=== PATIENT | female | born 1990 | race American Indian/Alaskan Native ===

== ENCOUNTER 2016-10-23 08:25 | Outpatient (CLI) | payer MEDICAID ==
[2016-10-23] MEDS ORDERED: LACTATED RINGERS 500 ML IV ONE (08:38)
[2016-10-23 08:50] VITALS: BP 136/83
[2016-10-23 08:56] LABS: Bacteria,Urine 1+ /HPF (Negative); Bilirubin,Urine NEG (Negative); Blood,Urine MOD (Negative); Ketones,Urine NEG (Negative); Leukocyte Esterase,Urine NEG (Negative); Mucus,Urine FEW /HPF; Nitrite,Urine NEG (Negative); Protein,Urine <15 mg/dL mg/dL (Negative); Urobilinogen,Urine < 2.0 mg/dL (<2.0)
== END 2016-10-23 11:10 | disposition home or self-care (01) ==
LOC: TRG 08:25
PROVIDERS: ATTEND Obstetrics & Gynecology
DX: Z34.93 Encounter for supervision of normal pregnancy, unspecified, third trimester (principal); Z3A.33 33 weeks gestation of pregnancy
CPT/HCPCS: 81001; 96360; J7120

== ENCOUNTER 2016-11-13 18:27 | Outpatient (CLI) | payer MEDICAID ==
[2016-11-13 19:08] LABS: Hematocrit 33.7 % (30.3-42.9); Hemoglobin 11.7 gm/dl (10.1-14.3); Mean Corpuscular HGB Conc 35 % (30-34); Mean Corpuscular Hemoglobin 29 pg (28-32); Mean Corpuscular Volume 84 fl (79-97); Platelet Count 242 K/mm3 (140-440); Red Blood Count 4.03 M/mm3 (3.65-5.03); Red Cell Distribution Width 13.8 % (13.2-15.2); White Blood Count 7.4 K/mm3 (4.5-11.0)
[2016-11-13 19:13] LABS: Bilirubin,Urine NEG (Negative); Blood,Urine SM (Negative); Ketones,Urine 20 mg/dL (Negative); Leukocyte Esterase,Urine SM (Negative); Mucus,Urine 2+ /HPF; Nitrite,Urine NEG (Negative)
[2016-11-13] MEDS ORDERED: LACTATED RINGERS 1,000 ML IV ONE (19:22)
[2016-11-13] MEDS ORDERED: TYLENOL PO ONE (19:23)
[2016-11-13 19:28] LABS: Alanine Aminotransferase 8 units/L (7-56); Uric Acid 2.8 mg/dL (3.5-7.6)
[2016-11-13 20:27] VITALS: BP 129/79
== END 2016-11-13 20:42 | disposition home or self-care (01) ==
LOC: TRG 18:27
PROVIDERS: ATTEND Obstetrics & Gynecology
DX: O47.03 False labor before 37 completed weeks of gestation, third trimester (principal); Z3A.36 36 weeks gestation of pregnancy
CPT/HCPCS: 36415; 59025; 81001; 82565; 83615; 84450; 84460; 84550; 85027; 96360; J7120

== ENCOUNTER 2016-11-21 18:19 | Outpatient (CLI) | payer MEDICAID ==
[2016-11-21 21:13] VITALS: BP 139/88
== END 2016-11-21 21:41 | disposition home or self-care (01) ==
LOC: TRG 18:19
PROVIDERS: ATTEND Obstetrics & Gynecology
DX: O47.1 False labor at or after 37 completed weeks of gestation (principal); Z3A.37 37 weeks gestation of pregnancy

== ENCOUNTER 2016-11-30 08:43 | Inpatient (IN) | payer MEDICAID ==
[2016-11-30] MEDS ORDERED: BRETHINE IVP PRN (09:11)
[2016-11-30] MEDS ORDERED: MINERAL OIL PO PRN (09:11)
[2016-11-30] MEDS ORDERED: ePHEDrine SULFATE IV PRN ×2 (09:11→12:29)
[2016-11-30] MEDS ORDERED: STADOL IV PRN (09:11)
[2016-11-30] MEDS ORDERED: BRETHINE SUB-Q PRN (09:11)
[2016-11-30] MEDS ORDERED: SUBLIMAZE IV PRN (09:11)
[2016-11-30] MEDS ORDERED: XYLOCAINE 2% INFILTRATI ONE (10:00)
[2016-11-30] MEDS ORDERED: PITOCin/NS 30 UNIT/500ML 30 UNITS/500 ML BAG IV SCH ×2 (10:00)
[2016-11-30 10:04] LABS: Hematocrit 35.5 % (30.3-42.9); Hemoglobin 12.2 gm/dl (10.1-14.3); Mean Corpuscular HGB Conc 34 % (30-34); Mean Corpuscular Hemoglobin 29 pg (28-32); Mean Corpuscular Volume 84 fl (79-97); Platelet Count 225 K/mm3 (140-440); Red Blood Count 4.22 M/mm3 (3.65-5.03); Red Cell Distribution Width 14.5 % (13.2-15.2); White Blood Count 6.8 K/mm3 (4.5-11.0)
[2016-11-30] MEDS: LACTATED RINGERS 1,000 ML IV SCH ×2 (11:03→16:51)
[2016-11-30] MEDS ORDERED: fentaNYL-BUPIV 2 MCG/ML-0.125% 200 MCG/100 ML BAG EPIDURAL ONE (11:48)
[2016-11-30] MEDS ORDERED: NARCAN 2 MG/2 ML IV PRN (12:29)
--- NOTE | 2016-11-30 12:29 | Anesthesia Consultation ---
Anesthesia Consult and Med Hx Date of service: 11/30/16 - Airway Anesthetic Teeth Evaluation: Good ROM Head & Neck: Adequate Mental/Hyoid Distance: Adequate Mallampati Class: Class II Intubation Access Assessment: Probably Good - Pulmonary Exam CTA: Yes - Cardiac Exam Cardiac Exam: RRR - Pre-Operative Health Status ASA Pre-Surgery Classification: ASA3 Proposed Anesthetic Plan: Epidural, Spinal - Pulmonary Hx Asthma: No COPD: No Hx Pneumonia: No - Cardiovascular System Hx Hypertension: No - Central Nervous System Hx Seizures: No Hx Psychiatric Problems: No - Endocrine Hx Renal Disease: No Hx End Stage Renal Disease: No Hx Hypothyroidism: No Hx Hyperthyroidism: No - Hematic Hx Anemia: No Hx Sickle Cell Disease: No - Other Systems Hx Alcohol Use: No Hx Obesity: Yes (morbid, BMI> 40) - Additional Comments Anesthesia Medical History Comments: +IUP
[2016-11-30] MEDS ORDERED: fentaNYL-BUPIV 2 MCG/ML-0.125% 200 MCG/100 ML BAG EPIDURAL SCH (13:00)
[2016-11-30] MEDS: PITOCin/NS 20 UNIT/1000ML DRIP 20 UNITS/1,000 ML BAG IV SCH ×2 (19:00→20:25)
--- NOTE | 2016-11-30 19:28 | History and Physical Report ---
History of Present Illness Date of examination: 11/30/16 Date of admission: 11/30/16 10:14 Chief complaint: My water broke History of present illness: Patient is a 25 year old who presents with rupture of membranes and contractions. She has had an uncomplicated course. GBS negative Past History Past Medical History: no pertinent history Past Surgical History: no surgical history Family/Genetic History: none Social history: single - Obstetrical History Expected Date of Delivery: 12/03/16 Actual Gestation: 39 Week(s) 4 Day(s) : 3 Number of Living Children: 2 Medications and Allergies Allergies Allergy/AdvReac Type Severity Reaction Status Date / Time No Known Allergies Allergy Verified 10/23/16 08:38 Active Meds: Active Medications Butorphanol Tartrate (Stadol) 2 mg IV Q2H PRN PRN Reason: Pain , Severe (7-10) Ephedrine Sulfate (Ephedrine Sulfate) 10 mg IV Q2M PRN PRN Reason: Hypotension Stop: 11/30/16 23:59 Fentanyl (Sublimaze) 100 mcg IV Q2H PRN PRN Reason: Labor Pain Lactated Ringer's (Lactated Ringers) 1,000 mls @ 125 mls/hr IV DIRECT CAROLIN Last Admin: 11/30/16 16:51 Dose: 125 mls/hr Oxytocin/Sodium Chloride (Pitocin/Ns 20 Unit/1000ml Drip) 20 units in 1,000 mls @ 125 mls/hr IV DIRECT CAROLIN Oxytocin/Sodium Chloride (Pitocin/Ns 30 Unit/500ml) 30 units in 500 mls @ 1 mls /hr IV TITR CAROLIN; 1 MILLIUNITS/MIN PRN Reason: Protocol Last Admin: 11/30/16 16:30 Dose: 4 milliunits/min, 4 mls/hr Oxytocin/Sodium Chloride (Pitocin/Ns 30 Unit/500ml) 30 units in 500 mls @ 4 mls /hr IV TITR CAROLIN PRN Reason: Protocol Fentanyl/Bupivacaine/Sodium Chlor (Fentanyl-Bupiv 2 Mcg/Ml-0.125%) 200 mcg in 100 mls @ 12 mls/hr EPIDURAL TITR CAROLIN PRN Reason: Protocol Last Admin: 11/30/16 12:58 Dose: 12 mls/hr Mineral Oil (Mineral Oil) 30 ml PO QHS PRN PRN Reason: Constipation Terbutaline Sulfate (Brethine) 0.25 mg SUB-Q ONCE PRN PRN Reason: Hyperstimulation/Hypertonicity Stop: 11/30/16 23:59 Terbutaline Sulfate (Brethine) 0.25 mg IVP ONCE PRN PRN Reason: Hyperstimulation/Hypertonicity Stop: 11/30/16 23:59 Review of Systems All systems: negative Breasts: deferred Genitourinary: leakage of fluid, contractions Rectal Exam: deferred - Vital Signs Vital signs: Vital Signs Pulse Pulse Ox 101 H 98 11/30/16 08:52 11/30/16 08:52 Temp Pulse Resp BP Pulse Ox 98 F 115 H 16 138/66 100 11/30/16 15:57 11/30/16 19:18 11/30/16 15:57 11/30/16 19:09 11/30/16 19:18 - Physical Exam Breasts: Positive: deferred Cardiovascular: Regular rate, Normal S1, Normal S2 Lungs: Positive: Clear to auscultation, Normal air movement Abdomen: Positive: normal appearance, soft, normal bowel sounds Genitourinary (Female): Positive: normal external genitalia, normal perenium Vulva: both: normal Vagina: Positive: normal moisture Uterus: Positive: normal size, normal contour Extremities: Positive: normal - Obstetrical Cervical Dilatation: 3 Cervical Effacement Percentage: 70 station: -4 Uterine Contraction Pattern: Irregular Uterine Contraction Intensity: Moderate Results Result Diagrams: 11/30/16 09:40 All other labs normal. Assessment and Plan Iup at 39.4 here with SROM and mild contractions. Will admit for labor. Augment with pitocin. Anticipate .
--- NOTE | 2016-11-30 19:36 | Procedure Note ---
OB Delivery Note - Delivery Date of Delivery: 11/30/16 Surgeon: MO SALMON Estimated blood loss: <100cc - Vaginal Delivery presentation: vertex Delivery position: OA Intrapartum events: PROM->1hr before delivery Delivery augmentation: pitocin Delivery monitor: external FHT, external uterine Route of delivery: Delivery placenta: spontaneous Delivery cord: 3 umbilical vessels Episiotomy: none Delivery laceration: none Anesthesia: epidural Delivery comments: Viable male delivered over intact perineum with 3vc. No nuchal cord. Placenta delivered spontaneously and intact with 3vc. Weight 7 pounds 11 ounces. Apgars 9,9. No lacerations. Infant placed on maternal abdomen. Skin to skin bonding. Patient tolerated procedure well. - Infant A at 1 minute: 8 at 5 minutes: 9 Infant Gender: Male
[2016-11-30] MEDS ORDERED: DULCOLAX PR PRN (21:28)
[2016-11-30] MEDS ORDERED: TUCKS PAD TP PRN (21:28)
[2016-11-30] MEDS ORDERED: BENADRYL PO PRN (21:28)
[2016-11-30] MEDS ORDERED: PHENERGAN PR PRN (21:28)
[2016-11-30] MEDS ORDERED: LANSINOH TP PRN (21:28)
[2016-11-30] MEDS ORDERED: MILK OF MAGNESIA PO PRN (21:28)
[2016-11-30] MEDS ORDERED: PHENERGAN PO PRN (21:28)
[2016-11-30] MEDS ORDERED: TYLENOL PO PRN (21:28)
[2016-11-30] MEDS ORDERED: SODIUM CHLORIDE FLUSH SYRINGE 10 ML IV NR (21:28)
[2016-11-30] MEDS ORDERED: ZOFRAN IV PRN (21:28)
[2016-11-30] MEDS: COLACE PO SCH ×2 (21:43→21:47)
[2016-11-30] MEDS: MOTRIN PO SCH (21:47)
[2016-12-01] MEDS ORDERED: PITOCin/NS 20 UNIT/1000ML DRIP 20,000 MILLIUNITS/1,000 ML BAG IV ONE (00:06)
[2016-12-01] MEDS: NORCO 5/325 PO PRN (01:21)
[2016-12-01] MEDS: MOTRIN PO SCH ×4 (03:23→20:08)
[2016-12-01 07:08] LABS: Hematocrit 25.7 % (30.3-42.9)
[2016-12-01] MEDS: PRENATAL VITAMIN PO SCH (13:20)
[2016-12-01] MEDS: COLACE PO SCH ×2 (13:20→21:46)
--- NOTE | 2016-12-01 14:12 | Progress Note ---
Subjective Date of service: 12/01/16 Interval history: 1st day after normal vaginal delivery Patient is in the bed, comfortable. Pain is well controlled with pain meds. Ambulated well. No residual neurological deficit. No anesthesia complications Objective - Constitutional Vitals: Vital Signs - 12hr 12/01/16 12/01/16 03:23 10:06 Temperature 98.3 F Pulse Rate 98 H Respiratory 16 20 Rate Blood Pressure 138/82 - Labs CBC & Chem 7: 12/01/16 06:56 Labs: Abnormal lab results 12/01/16 Range/Units 06:56 Hgb 9.0 L D (10.1-14.3) gm/dl Hct 25.7 L D (30.3-42.9) %
--- NOTE | 2016-12-01 17:59 | Progress Note ---
Assessment and Plan PPD 1 s/p . Doing well. Plan for discharge on tomorrow. Subjective - Subjective Date of service: 12/01/16 Interval history: Patient is a 25 year old who presents with rupture of membranes and contractions. She has had an uncomplicated course. GBS negative Patient reports: appetite normal, voiding normally, pain well controlled, flatus , ambulating normally [place]: doing well Objective - Vital Signs Latest vital signs: Vital Signs Temp Pulse Resp BP Pulse Ox 12/01/16 10:06 98.3 F 98 H 20 138/82 12/01/16 03:23 16 12/01/16 01:21 18 11/30/16 21:47 18 11/30/16 20:24 92 H 131/69 11/30/16 19:54 86 141/78 11/30/16 19:53 95 H 100 11/30/16 19:48 103 H 100 11/30/16 19:43 109 H 86 11/30/16 19:42 103 H 70 L 11/30/16 19:39 95 H 137/79 11/30/16 19:38 95 H 100 11/30/16 19:33 98 H 99 11/30/16 19:28 103 H 100 11/30/16 19:24 90 142/76 11/30/16 19:23 97 H 100 11/30/16 19:18 115 H 100 11/30/16 19:13 118 H 99 11/30/16 19:09 108 H 138/66 11/30/16 19:08 109 H 97 11/30/16 19:02 106 H 141/62 11/30/16 18:33 88 11/30/16 18:28 127 H 100 11/30/16 17:59 125 H 98 Intake and Output 12/01/16 12/01/16 12/01/16 06:59 14:59 22:59 Intake Total 1230 Output Total 800 Balance -800 1230 Intake: IV 750 PITOCin/NS 20 UNIT/1000ML 750 DRIP 20 units In 1,000 ml @ 125 mls/hr IV DIRECT CAROLIN Rx#:[id number] Oral 480 Output: Urine 800 Void 800 Other: Total, Intake Amount 480 Total, Output Amount 800 # Voids Void 1 - Exam Cardiovascular: Present: Regular rate, Normal S1, Normal S2 Lungs: Present: Clear to auscultation, Normal air movement Abdomen: Present: normal appearance, soft Uterus: Present: normal, firm Extremities: Present: normal Deep Tendon Reflex Grade: Normal +2 - Labs Labs: Abnormal lab results 12/01/16 Range/Units 06:56 Hgb 9.0 L D (10.1-14.3) gm/dl Hct 25.7 L D (30.3-42.9) %
--- NOTE | 2016-12-01 18:03 | Discharge Summary ---
Providers - Providers Date of Admission: 11/30/16 10:14 Date of discharge: 12/02/16 Attending physician: MO SALMON Primary care physician: MO SALMON Hospitalization Reason for admission: rupture of membranes Delivery: Episiotomy: none Laceration: none complications: none Discharge diagnosis: IUP at term delivered baby: male Condition at discharge: Good Disposition: DC-01 TO HOME OR SELFCARE Plan - Discharge Medications Prescriptions: HYDROcodone/APAP 5-325 [[place] 5-325 mg TAB] 2 each PO Q6H PRN #20 tablet PRN Reason: Pain, Moderate (4-6) Ibuprofen [Motrin 600 MG tab] 600 mg PO Q6H #40 tablet - Provider Discharge Summary Activity: routine, no sex for 6 weeks, no heavy lifting 4 weeks, no strenuous exercise Diet: routine Instructions: routine Additional instructions: [] Smoking cessation referral if applicable(refer to patient education folder for contact #) [] Refer to [facility]'s [facility] Booklet Call your doctor immediately for: * Fever > 100.5 * Heavy vaginal bleeding ( >1 pad per hour) * Severe persistent headache * Shortness of breath * Reddened, hot, painful area to leg or breast * Drainage or odor from incision. * Keep incision clean and dry at all times and follow doctor's instructions regarding bathing/showering - Follow up plan Follow up: MO SALMON MD [Primary Care Provider] - 6 Weeks
[2016-12-02] MEDS: NORCO 5/325 PO PRN ×3 (00:33→11:00)
[2016-12-02] MEDS: MOTRIN PO SCH (01:33)
[2016-12-02] MEDS ORDERED: BOOSTRIX IM ONE (06:00)
[2016-12-02] MEDS: PRENATAL VITAMIN PO SCH (10:55)
[2016-12-02] MEDS: COLACE PO SCH (11:00)
[2016-12-02] MEDS ORDERED: DEPO-PROVERA (CONTRACEPTION) IM ONE (12:00)
[2016-12-02 14:23] VITALS: BP 147/93
== END 2016-12-02 13:00 | disposition home or self-care (01) | DRG 775 ==
LOC: TRG 08:43 → LD 10:14 → OB 20:57
PROVIDERS: ADMIT Obstetrics & Gynecology; ATTEND Obstetrics & Gynecology
PROC: 00HU33Z Insertion of Infusion Device into Spinal Canal, Percutaneous Approach (ICD-10-PCS; principal; 2016-11-30)
PROC: 10E0XZZ Delivery of Products of Conception, External Approach (ICD-10-PCS; principal; 2016-11-30)
PROC: 3E0R3CZ (ICD-10-PCS; principal; 2016-11-30)
DX: O42.92 Full-term premature rupture of membranes, unspecified as to length of time between rupture and onset of labor (principal); Z3A.39 39 weeks gestation of pregnancy; Z37.0 Single live birth; O99.214 Obesity complicating childbirth; E66.01 Morbid (severe) obesity due to excess calories; Z68.41 Body mass index [BMI] 40.0-44.9, adult
CPT/HCPCS: 36415; 85014; 85018; 85027; 86850; 86900; 86901; 90715; 99211; G0463; J1050; J2590; J7120